=== PATIENT | female | born 1960 | race Two or more races ===

== ENCOUNTER 2018-02-18 17:35 | Emergency (ER) | payer SELFPAY ==
[~2018-02-18] VITALS: Ht 157.5 cm; Wt 61.0 kg
[2018-02-18] MEDS ORDERED: IBUPROFEN 600MG TABLET PO ONE (21:15)
[2018-02-19 06:38] VITALS: BP 101/61
== END 2018-02-19 06:48 | disposition home or self-care (01) ==
LOC: ER 17:35
DX: S43.51XA Sprain of right acromioclavicular joint, initial encounter (principal); M25.511 Pain in right shoulder; J45.909 Unspecified asthma, uncomplicated; F10.10 Alcohol abuse, uncomplicated; Y90.8 Blood alcohol level of 240 mg/100 ml or more; V03.90XA Pedestrian on foot injured in collision with car, pick-up truck or van, unspecified whether traffic or nontraffic accident, initial encounter; Y93.89 Activity, other specified; Y92.89 Other specified places as the place of occurrence of the external cause
CPT/HCPCS: 36415; 73030; 73060; 82962; 99285; G0482; A4565